=== PATIENT | male | born 1970 | race Caucasian/White ===

== ENCOUNTER 2021-09-12 08:05 | Emergency (ER) | payer OTHER, SELFPAY ==
--- NOTE | ~2021-09-12 | XR_ITS ---
EXAMINATION: XR chest 2V DATE: 09/12/2021 08:38 INDICATION: Nonproductive cough TECHNIQUE: Frontal and lateral views of the chest are obtained COMPARISON: None available FINDINGS: The lungs are free of acute opacities. There is no pleural effusion or pneumothorax. The ca rdiomediastinal silhouette is normal. There is mild thoracic spondylosis. IMPRESSION: 1. No acute cardiopulmonary abnormality. Reviewed, dictated and finalized at location B.
[2021-09-12 08:17] VITALS: BP 138/81; PULSE 84; RESP 16; TEMP 38; O2SAT 99
--- NOTE | 2021-09-12 08:17 | ED.URI ---
HPI - URI/Sore Throat General Chief Complaint: Upper Respiratory Infection Stated Complaint: sob/cp Time Seen by Provider: 09/12/21 08:21 Source: patient and RN notes reviewed Mode of arrival: ambulatory Limitations: no limitations History of Present Illness HPI Narrative: 51 y/o male presented for c/o midsternal chest pain, onset about 4 days ago. States it started after working in a basement. States the following day he had right eye swollen shut which has since resolved. Chest Pain is constant, sharp, 3/10. Also endorses sob and coughing episodes since onset. One episode of vomiting this morning and more coughing and heart racing. Cough is nonproductive. Denies sick contacts. Not vaccinated for flu / covid. MD elicited complaint: cough Related Data Allergies Allergy/AdvReac Type Severity Reaction Status Date / Time No Known Allergies Allergy Unverified 12/18/18 19:03 Review of Systems Review of Systems: CONSTITUTIONAL:Denies malaise, chills, sweats, fever EYES: Denies visual changes, redness, or discharge ENT: Denies rhinorrhea, congestion, sinus pain, otalgia, sore throat CARDIOVASCULAR: Endorses chest pain, Denies palpitations, edema RESPIRATORY: Reports cough, dyspnea GASTROINTESTINAL: Reports vomiting, Denies abdominal pain, nausea, diarrhea SKIN: Denies rash or itching MUSCULOSKELETAL: Denies myalgia NEUROLOGIC: Denies headache PMFSH Family History Family History Mother Patient's mother is in good health Father Patient's father is , Onset Age: 57 Social History Social History Smoking status: Never smoker Alcohol intake: current Exam Narrative: GENERAL: Well-appearing HEAD: Normocephalic EYES: conjunctivae clear ENT: Mucous membranes moist. Left TM unable to visualize due to cerumen, small green FB in the cerumen, denies sx. Right TM pearly casno with dull light reflex; no tragal tenderness. Oropharynx erythematous without lesions or exudate, no drooling, no hoarseness, no trismus, uvula midline. NECK: Supple. No lymphadenopathy CHEST: Clear to auscultation, breath sounds equal. No wheezing, rhonchi, rales, or stridor. No respiratory distress, speaks in full sentences. HEART: Regular rate and rhythm. No murmur heard. SKIN: Warm, dry, no rash. NEURO: Alert and oriented x3. PSYCH: Normal mood and affect Course Course Emergency Course: Patient is aware of diagnosis, understands and agrees to treatment plan. Anticipatory guidance given. Patient agrees to follow-up as directed and is aware of reasons to seek care at the emergency department. Portions of this record may have been created with voice recognition software Level of Care: Express Care Visit Vital Signs Vital signs: Vital Signs Temperature 100.4 F H 09/12/21 08:17 Pulse Rate 84 09/12/21 08:17 Respiratory Rate 16 09/12/21 08:17 Blood Pressure 138/81 09/12/21 08:17 Pulse Oximetry 99 09/12/21 08:17 Temperature 100.4 F H 09/12/21 08:17 Pulse Rate 84 09/12/21 08:17 Respiratory Rate 16 09/12/21 08:17 Blood Pressure 138/81 09/12/21 08:17 Pulse Oximetry 99 09/12/21 08:17 reviewed MDM - URI/Sore Throat MDM Narrative Medical decision making narrative: EKG and CXR reviewed with pt. Covid and flu negative. left ear with cerumen, advised debrox, no pain a/w fb c/w string vs other. Recommend otc antihistamine and inhaler PRN, f/u with pcp. pt is stable and appropriate for outpt treatment and f/u Differential Diagnosis Differential diagnosis: Likely upper respiratory infection, sinusitis and viral infection Lab Data Attestation: I reviewed the patient's lab results. Labs: Influenza A Screen Negative Reference Range: Negative Influenza B Screen Negative Reference Rang
--- NOTE | 2021-09-12 08:46 | ECG_ITS ---
Measurements Intervals [place] Rate: 83 P: 35 UT: 186 QRS: 12 QRSD: 91 T: 32 QT: 340 QTc: 401 Interpretive Statements SINUS RHYTHM POSSIBLE LEFT ATRIAL ENLARGEMENT [-0.1mV P WAVE IN V1/V2] BORDERLINE ECG NO PREVIOUS ECG AVAILABLE FOR COMPARISON Electronically Signed On 09-12-2021 14:04:20 CDT by Francisco Avila M.D.
== END 2021-09-12 09:40 | disposition home or self-care (01) ==
PROVIDERS: Emergency Provider Nurse Practitioner Family
DX: R05.9 Cough, unspecified (principal); Z20.822 Contact with and (suspected) exposure to COVID-19
CPT/HCPCS: 71046; 87426; 87804; 93005; 99213; C9803; G0463

== ENCOUNTER 2023-07-31 08:10 | Emergency (ER) | payer OTHER, SELFPAY ==
--- NOTE | 2023-07-31 08:14 | ED.URI ---
HPI - URI/Sore Throat General Chief Complaint: Upper Respiratory Infection Stated Complaint: Sinus/Cough Time Seen by Provider: 07/31/23 08:15 Source: patient Mode of arrival: ambulatory Limitations: no limitations History of Present Illness HPI Narrative: Patient is a 53-year-old male who presents with over a week of sinus congestion, drainage and cough. Patient states he had fever and beginning. Has been taking Delsym and Mucinex with no relief. Denies any nausea, vomiting, diarrhea. Related Data Allergies Allergy/AdvReac Type Severity Reaction Status Date / Time No Known Allergies Allergy Verified 07/31/23 08:35 Review of Systems Review of Systems: All systems reviewed & are unremarkable except as noted in HPI and below Constitutional: Constitutional: Denies body ache(s), Denies chills, Denies fatigue, Denies fever(s), Denies headache(s), Denies malaise and Denies weakness Eyes: Eyes: Denies blurry vision, Denies itchy eyes and Denies loss of vision ENT: Denies otalgia, Denies headache(s), Reports nasal congestion, Denies sinus pain and Denies sore throat Cardiovascular: Cardiovascular: Denies chest pain, Denies irregular heart rhythm and Denies dyspnea Respiratory: Respiratory: Reports cough and Denies dyspnea Gastrointestinal: Gastrointestinal: Denies abdominal pain, Denies diarrhea, Denies nausea and Denies vomiting Musculoskeletal: Musculoskeletal: Denies back pain, Denies myalgias and Denies arthralgias Integumentary/Breasts: Skin/Breast: Denies pruritus and Denies rash Neurologic: Denies headache(s), Denies loss of vision and Denies weakness Psychiatric: Psychiatric: Reports no additional psychiatric complaints Endocrine: Endocrine: Denies fatigue Allergic/Immunologic: Allergic/Immunologic: Denies itchy eyes PMFSH Family History Family History Mother Patient's mother is in good health Father Patient's father is , Onset Age: 57 Social History Social History Smoking status: Never smoker Alcohol intake: current Comments At time of signature, agree with nursing past medical, surgical, social and family history. There is no relevant family history pertinent to the presenting complaint. Exam Const: General: cooperative, healthy appearing, comfortable, no acute distress and well nourished Nutritional Appearance: well nourished Orientation/consciousness: patient oriented x3 Limitations: no limitations HENMT: Head: normal to inspection, normocephalic and atraumatic Ears: hearing grossly normal bilaterally, external ears normal, TM's normal bilaterally, EAC's normal and no periauricular adenopathy Face/Nose/Sinus: Normal external nose present, Abnormal mucous membranes and turbinates present erythematous bilateral and diffuse, normal facial exam, sinuses nontender and face symmetric Face and sinus: normal facial exam, sinuses nontender and face symmetric Mouth: Yes Normal oral and palatal mucosa present, Yes lip normal, Yes tongue normal, Yes Normal salivary glands and ducts present, Yes oropharynx normal and Yes moist mucous membranes Teeth and gingiva: dentition normal Throat: posterior oropharynx normal, tonsils normal and uvula midline Eyes: General: appearance normal, both eyes and all related structures Alignment and Position: alignment normal and position normal Periorbital: periorbital findings normal Eyelids: eyelids normal Pupils: Equal, round and reactive pupils present Neck: Neck: normal visual inspection, full ROM, no lymphadenopathy and supple Chest: Chest palpation & inspection: normal inspection of the chest and normal palpation of entire chest wall Resp: Effort & Inspection: normal respiratory effort and able to speak in complete sentences Auscultation: clear to auscultation bilaterally, no crackles, no rales, no rhonchi and no wheezes Cardio: Ra
[2023-07-31 08:26] VITALS: BP 145/80; PULSE 74; RESP 16; TEMP 36.6; O2SAT 100
== END 2023-07-31 09:00 | disposition home or self-care (01) ==
PROVIDERS: Emergency Provider Nurse Practitioner Family
DX: J06.9 Acute upper respiratory infection, unspecified (principal); R05.9 Cough, unspecified
CPT/HCPCS: 99213; G0463

== ENCOUNTER 2023-08-10 14:51 | Emergency (ER) | payer OTHER, SELFPAY ==
--- NOTE | ~2023-08-10 | XR_ITS ---
EXAMINATION: XR chest 2V Exam Date/Time: 08/10/2023 15:18 [employer]UR BLOWING MACHINE OPERATOR HISTORY: cough x 10 days Comparison: 09/12/2021. RESULT: Lines, tubes, and devices: None. Lungs and pleura: Irregular, somewhat nodular appearing opacity projecting over the spine in the lat eral view without any correlate in the frontal view. Lungs otherwise clear. Cardiomediastinal silhouette: Stable. Other: No acute osseous or upper abdominal finding. IMPRESSION: No acute cardiopulmonary process. Nodular opacity versus artifact projecting over the spine, seen only in the lateral view. Consider no nemergent but timely low-dose noncontrast CT of the chest 2 exclude a pulmonary nodule. Reviewed, dictated and finalized at location K. BLOWING MACHINE OPERATOR IMPRESSION: No acute cardiopulmonary process. Nodular opacity versus artifact projecting over the spine, seen only in the lat eral view. Consider nonemergent but timely low-dose noncontrast CT of the chest 2 exclude a pulmonary nodule.
[2023-08-10 14:59] VITALS: BP 149/82; PULSE 80; RESP 20; TEMP 37.3; O2SAT 100
--- NOTE | 2023-08-10 15:10 | ED.URI ---
HPI - URI/Sore Throat General Chief Complaint: Upper Respiratory Infection Stated Complaint: Cough Time Seen by Provider: 08/10/23 15:11 Source: patient and RN notes reviewed Mode of arrival: ambulatory Limitations: no limitations History of Present Illness HPI Narrative: 53-year-old male presents with concern for 3 week history of persistent cough. Reports he was seen 2 weeks ago and given antibiotics, steroids, cough medicine, inhaler. Reports his symptoms improved for about 2 days and then returned. Reports he now has stuffy nose and runny nose. He reports inhaler and Tessalon Perles are not helping. He denies fever MD elicited complaint: cough and rhinorrhea Related Data Allergies Allergy/AdvReac Type Severity Reaction Status Date / Time No Known Allergies Allergy Verified 08/10/23 14:53 Review of Systems Review of Systems: CONSTITUTIONAL: Denies malaise, chills, sweats, or fever. EYES: Denies visual changes, redness, or discharge. ENT: Reports rhinorrhea, congestion. Denies sinus pain, otalgia and sore throat. CARDIOVASCULAR: Denies chest pain, palpitations, or edema. RESPIRATORY: Reports cough, chest congestion. Denies dyspnea. GASTROINTESTINAL: Denies abdominal pain, nausea, vomiting, diarrhea SKIN: Denies rash or itching. MUSCULOSKELETAL: Denies myalgia. NEUROLOGIC: Denies headache. All systems reviewed & are unremarkable except as noted in HPI and below PMFSH Family History Family History Mother Patient's mother is in good health Father Patient's father is , Onset Age: 57 Social History Social History Smoking status: Never smoker Alcohol intake: current Comments At time of signature, agree with nursing past medical, surgical, social and family history. There is no relevant family history pertinent to the presenting complaint Exam Narrative: GENERAL: Well-appearing, well-nourished, and in no acute distress. HEAD: Normocephalic EYES: PERRLA, conjunctivae clear ENT: Nares clear. Mucous membranes moist. TM pearly cason with dull light reflex bilaterally; no tragal tenderness. Oropharynx not erythematous without lesions. Tonsils not enlarged and without exudate, no drooling, no hoarseness, no trismus, uvula midline. NECK: Supple. No lymphadenopathy CHEST: Expiratory rhonchi noted, otherwise clear to auscultation, breath sounds equal. No rhonchi, rales, or stridor. No respiratory distress, speaks in full sentences. HEART: Regular rate and rhythm. No murmur heard. SKIN: Warm, dry, no rash. NEURO: Alert and oriented x3. PSYCH: Normal mood and affect Course Course Emergency Course: Patient is aware of diagnosis, understands and agrees to treatment plan. Anticipatory guidance given. Patient agrees to follow-up as directed and is aware of reasons to seek care at the emergency department. Portions of this record may have been created with voice recognition software Level of Care: Express Care Visit Vital Signs Vital signs: Vital Signs Temperature 99.1 F 08/10/23 14:59 Pulse Rate 80 08/10/23 14:59 Respiratory Rate 20 08/10/23 14:59 Blood Pressure 149/82 H 08/10/23 14:59 Pulse Oximetry 100 08/10/23 14:59 Oxygen Delivery Room Air 08/10/23 14:59 Temperature 99.1 F 08/10/23 14:59 Pulse Rate 80 08/10/23 14:59 Respiratory Rate 20 08/10/23 14:59 Blood Pressure 149/82 H 08/10/23 14:59 Pulse Oximetry 100 08/10/23 14:59 Oxygen Delivery Room Air 08/10/23 14:59 Reviewed. MDM - URI/Sore Throat MDM Narrative Medical decision making narrative: Differential diagnosis considered: Wells virus, strep pharyngitis, allergic rhinitis, upper respiratory tract infection, sinusitis, rhinosinusitis, nasopharyngitis. viral pharyngitis, otitis media, otitis externa, pneumonia, bronchitis, viral cough syndrome, viral syndrome, and influenza.
== END 2023-08-10 16:05 | disposition home or self-care (01) ==
PROVIDERS: Emergency Provider Nurse Practitioner
DX: R05.9 Cough, unspecified (principal); R91.1 Solitary pulmonary nodule
CPT/HCPCS: 71046; 99213; G0463